=== PATIENT | female | born 1940 | race Caucasian/White ===

== ENCOUNTER → 2016-04-04 | Outpatient (CLI) | payer OTHER ==
[~2016-04-04] VITALS: Ht 158.8 cm; Wt 59.3 kg
[~2016-04-04] MED LIST: ASPI81TA28 PO; ATV1 PO; CEFAZOLIN 1000MG/55 ML D5W IV SCH; CYAN3INJ IM; FLUT0.15 NAE; FLX10 PO; FURO-85 PO; IBUP-103 PO; IBUP600T44 PO; LACTATED RINGER'S 1000ML 1,000 ML IV SCH; LEVO125T39 PO; LISI-788 PO; LPT/20 PO; ONDA4TAB65 PO; OXYC-57 PO; OXYC1TAB3 PO; PARO1TAB27 PO; RXC5 PO; TMPOPS15 OPR
[2016-04-04 09:22] VITALS: Ht 158.8 cm; Wt 59.3 kg
--- NOTE | 2016-04-04 09:50 | PAT Medication Instructions ---
Service Date Apr 04, 2016. Current Home Medication List Atorvastatin (Atorvastatin Calcium), 20 MG PO QAM Cyanocobalamin (Vitamin B-12 Inj), 1 ML IM MONTHLY Cyclobenzaprine HCl (Cyclobenzaprine HCl), 5 MG PO TID PRN for Muscle Spasms Fluticasone Propionate (Nasal) (Flonase Allergy Relief), 2 SPRAYS LEONIE PRN Furosemide (Lasix), 20 MG PO PRN Ibuprofen (Motrin), 600 MG PO TID Ibuprofen Tab (Advil), 400 MG PO PRN Levothyroxine Sodium (Levoxyl), 125 MCG PO QAM Lisinopril/Hctz (Zestoretic 20MG/25MG), 1 TAB PO QAM Oxycodone/Acetaminophen 5MG/325MG (Percocet 5MG/325MG), 1 TABLET PO Q6H PRN for Pain Paroxetine (Paxil), 20 MG PO QAM Timolol Maleate (Timolol 0.5% Oph Soln 15 Ml), 1 DROP OPR BID Medication Instructions For Your Scheduled Surgery - Hold the following medications the morning of surgery: Lisinopril/Hctz (Zestoretic 20MG/25MG), 1 TAB PO QAM Ibuprofen (Motrin), 600 MG PO TID (otherwise okay to continue per surgeon) Ibuprofen Tab (Advil), 400 MG PO PRN (otherwise okay to continue per surgeon) Furosemide (Lasix), 20 MG PO PRN Cyclobenzaprine HCl (Cyclobenzaprine HCl), 5 MG PO TID PRN for Muscle Spasms - Take the following medications the morning of surgery with a sip of water: Timolol Maleate (Timolol 0.5% Oph Soln 15 Ml), 1 DROP OPR BID Paroxetine (Paxil), 20 MG PO QAM Oxycodone/Acetaminophen 5MG/325MG (Percocet 5MG/325MG), 1 TABLET PO Q6H PRN for Pain (may take up to 4 hours prior to surgery if needed) Levothyroxine Sodium (Levoxyl), 125 MCG PO QAM Fluticasone Propionate (Nasal) (Flonase Allergy Relief), 2 SPRAYS LEONIE PRN Atorvastatin (Atorvastatin Calcium), 20 MG PO QAM - Take the following medications as scheduled the night before surgery: Timolol Maleate (Timolol 0.5% Oph Soln 15 Ml), 1 DROP OPR BID Oxycodone/Acetaminophen 5MG/325MG (Percocet 5MG/325MG), 1 TABLET PO Q6H PRN for Pain Ibuprofen (Motrin), 600 MG PO TID Ibuprofen Tab (Advil), 400 MG PO PRN Fluticasone Propionate (Nasal) (Flonase Allergy Relief), 2 SPRAYS LEONIE PRN Cyclobenzaprine HCl (Cyclobenzaprine HCl), 5 MG PO TID PRN for Muscle Spasms If you have any questions please call us at [phone] or [phone] or [phone]
[2016-04-04 10:27] LABS: BASO % 0.5 %; BASO ABS # 0.03 K/uL (0-0.2); COMPLETE YES; HEMATOCRIT 35.2 % (37-47); LYMPH % 30.6 %; LYMPH ABS # 1.92 K/uL (1.2-3.4); MEAN CELL VOLUME 94.4 fL (80-100); MEAN CORPUSCULAR HEMOGLOBIN 31.1 pg (25-34); MEAN PLATELET VOLUME 9.8 fL (7.4-10.4); MONO % 9.7 %; NEUT % 55.2 %; PLATELET COUNT 387 K/uL (130-400); RED BLOOD COUNT 3.73 M/uL (4.2-5.4); WHITE BLOOD COUNT 6.27 K/uL (4.8-10.8)
[2016-04-04 10:36] LABS: URINE APPEARANCE CLEAR (CLEAR); URINE BILIRUBIN NEG (NEG); URINE COLOR YELLOW; URINE NITRITE NEG (NEG); URINE SPECIFIC GRAVITY 1.011 (1.000-1.030); UROBILINOGEN NEG (NEG)
--- NOTE | 2016-04-04 10:39 | DIAGNOSTIC IMAGING REPORT ---
TWO VIEW CHEST CLINICAL HISTORY: Preoperative examination. FINDINGS: PA and lateral chest radiographs are compared to study dated 03/21/2014. The cardiomediastinal silhouette is unremarkable. There is atherosclerotic calcification of the thoracic aorta. The lungs and pleural spaces are clear. There is no pneumothorax. The skeletal structures are osteopenic. Degenerative change is noted in the thoracic spine. Fusion hardware is partially imaged in the lumbar spine. Advanced atherosclerotic calcification is seen in the right carotid bulb. IMPRESSION: No active disease in the chest. Electronically signed by: Humberto Butcher M.D. 04/04/2016 10:37 AM Dictated Date/Time: 04/04/2016 10:36 AM
[2016-04-04 10:42] LABS: BUN/CREATININE RATIO 31.3 (10-20); CALCIUM 8.7 mg/dl (8.5-10.1); CREATININE 0.94 mg/dl (0.60-1.20); POTASSIUM 4.1 mmol/L (3.5-5.1)
[2016-04-04 11:00] LABS: MANUAL MICROSCOPIC REQUIRED? NO; REVIEW REQ? NO
== END | disposition home or self-care (01) ==
LOC: C.LAB 08:00 → EDSTATUS 05-03 13:43
PROVIDERS: ATTEND Orthopaedic Surgery Orthopaedic Surgery of the Spine
DX: Z01.810 Encounter for preprocedural cardiovascular examination (principal); Z01.811 Encounter for preprocedural respiratory examination; Z01.812 Encounter for preprocedural laboratory examination; R94.31 Abnormal electrocardiogram [ECG] [EKG]